=== PATIENT | female | born 1940 | race Caucasian/White ===

== ENCOUNTER 2017-06-21 13:40 | Emergency (ER) | payer OTHER ==
[~2017-06-21] VITALS: Ht 147.3 cm; Wt 57.3 kg
[~2017-06-21 13:40] MED LIST: ASPI81TA87 PO; ATOR10TA84 PO; CALC-590 PO; CARB15DR OP; FLUO60GE9 TP; INFL100I IV; LIDO700A30; MONT10TA21 PO; MULT1TAB PO; TAFL1DRO OP; VICOT PO; VITAD1000 PO
[2017-06-21 15:36] VITALS: BP 151/72
== END 2017-06-21 16:51 | disposition home or self-care (01) ==
LOC: EMS 13:41
DX: R09.89 Other specified symptoms and signs involving the circulatory and respiratory systems (principal); E78.00 Pure hypercholesterolemia, unspecified; I10 Essential (primary) hypertension; Z79.82 Long term (current) use of aspirin
CPT/HCPCS: 99283